=== PATIENT | male | born 1975 | race Caucasian/White ===

== ENCOUNTER 2018-01-12 09:08 | Day surgery (SDC) | payer BC ==
[~2018-01-12 09:08] MED LIST: CEFAZOLIN 2 GM/50 ML (PMX) 50 ML IVPB; IOHEXOL 300MG/ML 150 ML BTL; SOD CHLORIDE 0.9% 1,000 ML IV; SOD CHLORIDE 0.9% 100 ML
[2018-01-12 10:46] LABS: ADD MAN DIFF? NO
[2018-01-12 10:49] LABS: BASOPHILS % 0.4 % (0.0-2.0); EOSINOPHILS # 0.1 10^3/ul (0.0-0.5); EOSINOPHILS % 1.5 % (0.0-7.0); HEMATOCRIT 44.1 % (42.0-52.0); HEMOGLOBIN 14.9 g/dl (14.0-18.0); LYMPHOCYTES # 2.2 10^3/ul (0.8-2.9); LYMPHOCYTES % 33.4 % (15.0-51.0); MEAN CORPUSCULAR HEMOGLOBIN 28.3 pg (29.0-33.0); MEAN CORPUSCULAR HGB CONC 33.8 g/dl (32.0-37.0); MEAN CORPUSCULAR VOLUME 83.8 fl (82.0-101.0); MEAN PLATELET VOLUME 10.2 fl (7.4-10.4); MONOCYTE # 0.5 10^3/ul (0.3-0.9); NEUTROPHIL # 3.8 10^3/ul (1.6-7.5); NEUTROPHILS % 57.3 % (39.0-77.0); PLATELET COUNT 201 10^3/UL (140-415); RED BLOOD COUNT 5.26 10^6/ul (4.70-6.10); RED CELL DISTRIBUTION WIDTH 13.7 % (11.5-14.5)
[2018-01-12 10:49] LABS: WHITE BLOOD COUNT 6.7 10^3/ul (4.8-10.8)
[2018-01-12 11:08] LABS: ALANINE AMINOTRANSFERASE 39 IU/L (13-69); ALBUMIN 4.6 g/dl (3.3-4.9); ALBUMIN/GLOBULIN RATIO 1.48; ALKALINE PHOSPHATASE 89 IU/L (42-121); ANION GAP 11 (8-16); ASPARTATE AMINO TRANSFERASE 24 IU/L (15-46); BILIRUBIN,INDIRECT 0.5 mg/dl (0-1.1); BILIRUBIN,TOTAL 0.5 mg/dl (0.2-1.3); BLOOD UREA NITROGEN 12 mg/dl (7-20); CALCIUM 10.2 mg/dl (8.4-10.2); CARBON DIOXIDE 30 mmol/L (21-31); CHLORIDE 106 mmol/L (97-110); CREATININE 0.93 mg/dl (0.61-1.24); GLUCOSE 102 mg/dl (70-220); POTASSIUM 4.5 mmol/L (3.5-5.1); SODIUM 142 mmol/L (135-144); TOTAL PROTEIN 7.7 g/dl (6.1-8.1)
[2018-01-12 11:10] LABS: INR 0.92; PROTIME 12.4 Sec (11.9-14.9)
[2018-01-12 11:11] LABS: PARTIAL THROMBOPLASTIN TIME 29.1 Sec (25.0-35.0)
[2018-01-12] MEDS ORDERED: PROPOFOL 20 ML (12:44)
[2018-01-12] MEDS ORDERED: MEPERIDINE 25 MG INJ IV (13:00)
[2018-01-12] MEDS ORDERED: FENTAnyl 50 MCG/ML VIAL IV ×3 (13:00)
[2018-01-12] MEDS ORDERED: EPHEDrine SULFATE 50 MG/5 ML SYG IV (13:00)
[2018-01-12] MEDS ORDERED: KETOROLAC 30 MG INJ IV (13:00)
[2018-01-12] MEDS ORDERED: HYDROmorphONE 1 MG/5 ML IV SYRINGE IV ×3 (13:00)
[2018-01-12] MEDS ORDERED: DIPHENHYDRAMINE 50 MG INJ IV (13:00)
[2018-01-12] MEDS ORDERED: ONDANSETRON 4 MG INJ IV (13:00)
[2018-01-12] MEDS ORDERED: LABETALOL HCL 20MG INJ IV (13:00)
[2018-01-12] MEDS ORDERED: METOCLOPRAMIDE 10 MG INJ IV (13:00)
[2018-01-12] MEDS ORDERED: OXYCODONE/ACETAMINOPHEN (5/325) TAB PO ×2 (13:00)
[2018-01-12] MEDS ORDERED: MIDAZOLAM 1 MG/ML 2 ML INJ IV (13:00)
[2018-01-12] MEDS ORDERED: ALBUTEROL 0.083% (NEB) 2.5 MG/3 ML AMP HHN (13:00)
[2018-01-12] MEDS ORDERED: hydrALAzine 20 MG INJ IV (13:00)
[2018-01-12] MEDS: BUPIVACAINE 0.25% (MPF) 30 ML INJ (13:20)
[2018-01-12] MEDS ORDERED: LIDOCAINE 2% (SDV) 5 ML INJ (13:37)
[2018-01-12] MEDS ORDERED: CEFAZOLIN 1 GM INJ (13:37)
[2018-01-12] MEDS: HYDROCODONE/APAP (5/325) TAB PO (14:00)
== END 2018-01-12 15:30 | disposition home or self-care (01) ==
LOC: SDS 09:08
DX: D17.1 Benign lipomatous neoplasm of skin and subcutaneous tissue of trunk (principal); E66.9 Obesity, unspecified; Z68.34 Body mass index [BMI] 34.0-34.9, adult
CPT/HCPCS: 14001; 80053; 85025; 85610; 85730; 88307